=== PATIENT | female | born 1935 | race Caucasian/White ===

== ENCOUNTER 2016-05-09 10:03 | Outpatient (CLI) | payer MEDICARE, BC ==
--- NOTE | 2016-05-09 20:46 | ULT ---
LEFT LEG VENOUS ULTRASOUND 05/09/16 Ultrasonography of the left lower extremity was performed for evaluation of a palpable area, possibl y a hematoma, in the extremity. Color duplex doppler ultrasound shows no evidence of echogenic clot in the deep veins. All deep veins were freely compressible from groin to ankle. There was normal dop pler response to augmentation maneuvers. In the area of concern, there was no real mass, fluid colle ction, or definite ultrasonographic finding. No evidence of DVT, fluid collection, or definite acute finding. At most, there is about a 4.9 cm lo ng slightly echogenic area in the area of palpable concern. I suppose this could be a solid hematoma , but its echogenicity is nearly the same as the rest of the surrounding tissues. IMPRESSION: 1. No evidence of DVT. 2. Mild increase in echoes at the area of palpable abnormality, though it is not dissimilar fro m the surrounding tissue by much. There is certainly no fluid collection here. POS: HOME
== END 2016-05-09 10:04 | disposition home or self-care (01) ==
LOC: BURULT 10:03
PROVIDERS: ATTEND Family Medicine
DX: S80.10XA Contusion of unspecified lower leg, initial encounter (principal); M79.605 Pain in left leg

== ENCOUNTER 2016-07-09 10:57 | Outpatient (CLI) | payer MEDICARE, BC ==
[2016-07-09 16:46] LABS: #Basophils 0.1 thou/uL (0.0-0.2); #Eosinphils 1.2 thou/uL (0.0-0.7); #Lymphocytes 2.2 thou/uL (1.20-3.40); #Monocytes 0.7 thou/uL (0.11-0.59); #Neutrophils 3.7 thou/uL (1.40-6.50); %Basophils 1.9 % (0.0-1.0); %Eosinophils 15.5 % (0.0-10.0); %Lymphocytes 27.2 % (21.0-51.0); %Monocytes 9.1 % (0.0-10.0); %Neutrophils 46.3 % (42.0-75.0); Hemoglobin 15.3 g/dL (12.0-16.0); Mean Corpuscular HGB CONC 33.5 g/dL (32.0-36.0); Mean Corpuscular Hemoglobin 31.2 pg (27.0-31.0); Mean Corpuscular Volume 93.1 fl (81.0-99.0); Mean Platelet Volume 9.2 fL (7.4-10.4); Platelet Count 233 thou/uL (130-400); RBC Distribution Width 11.7 % (11.5-14.5)
[2016-07-09 17:15] LABS: ALT (SGPT) 18 U/L (0-55); AST (SGOT) 23 U/L (5-34); Albumin 4.2 g/dL (3.4-4.8); Alkaline Phosphatase 58 U/L (40-150); Anion Gap 13 mmol/L (10-20); BUN (Urea Nitrogen) 14 mg/dL (9.8-20.1); Bilirubin, Total 0.5 mg/dL (0.2-1.2); Calc. Creatinine Clearance 0 mL/min (70-130); Calcium 9.5 mg/dL (7.8-10.44); Carbon Dioxide 27 mmol/L (23-31); Cardiac Risk 3.3 (Less than 4.5); Chloride 107 mmol/L (98-107); Cholesterol 162 mg/dL (< 200 Desired); Estimated GFR-MDRD 73; Globulin 2.6 g/dL (2.4-3.5); Glucose 101 mg/dL (83-110); HDL Cholesterol 49 mg/dL (>60 Neg Risk); LDL Cholesterol, Calculated 101 mg/dL; Potassium 4.9 mmol/L (3.5-5.1); Protein, Total 6.8 g/dL (5.8-8.1); Sodium 142 mmol/L (136-145); Triglycerides 61 mg/dL (Less than 150)
[2016-07-09 17:20] LABS: Hemoglobin A1c 5.7 % (4.0-6.0)
== END 2016-07-09 10:58 | disposition home or self-care (01) ==
LOC: LABLEX 10:57
PROVIDERS: ATTEND Family Medicine
DX: J06.9 Acute upper respiratory infection, unspecified (principal); R73.09 Other abnormal glucose; K21.9 Gastro-esophageal reflux disease without esophagitis; E03.9 Hypothyroidism, unspecified
CPT/HCPCS: 80053; 80061; 83036; 84443; 85025

== ENCOUNTER 2022-07-24 13:40 | Outpatient (CLI) | payer MEDICARE | END 2022-07-24 13:41 | disposition home or self-care (01) | LOC: BURRAD 13:40 | PROVIDERS: ATTEND Nurse Practitioner | DX: M41.35 Thoracogenic scoliosis, thoracolumbar region (principal); M47.814 Spondylosis without myelopathy or radiculopathy, thoracic region; M47.816 Spondylosis without myelopathy or radiculopathy, lumbar region | CPT/HCPCS: 72081 ==

== ENCOUNTER 2023-09-09 10:13 | Emergency (ER) | payer MEDICARE ==
[2023-09-09] MEDS ORDERED: Morphine 4 MG/ML VIAL ONE (11:21)
[2023-09-09] MEDS ORDERED: Ondansetron PF 4 MG/2 ML Vial ONE (11:21)
== END 2023-09-09 11:51 | disposition home or self-care (01) ==
LOC: BURERS 10:13
DX: S22.31XA Fracture of one rib, right side, initial encounter for closed fracture (principal); R91.8 Other nonspecific abnormal finding of lung field; W01.198A Fall on same level from slipping, tripping and stumbling with subsequent striking against other object, initial encounter
CPT/HCPCS: 71250; 96374; 96375; J2270; J2405